=== PATIENT | female | born 1990 | race Two or more races ===

== ENCOUNTER 2022-06-21 09:52 | Emergency (ER) | payer SELFPAY ==
[2022-06-21 10:04] VITALS: BP 115/75; PULSE 105; RESP 18; TEMP 99.6
[2022-06-21] MEDS ORDERED: ONDANSETRON *ODT* 4 MG TABLET SL ONE (10:59)
[2022-06-21] MEDS ORDERED: ACETAMINOPHEN 500 MG TABLET (FP) PO ONE (11:00)
[2022-06-21] MEDS ORDERED: ACETAMINOPHEN 500 MG TABLET (FP) ONE (11:07)
[2022-06-21] MEDS ORDERED: ONDANSETRON *ODT* 4 MG TABLET ONE (11:07)
[2022-06-21 13:13] LABS: EPI CELLS 33 /uL (0-25.1); HYALINE CASTS 6 /uL (0-3.1); URINE APPEARANCE CLEAR; URINE BACTERIA 1063 /uL (0-1359); URINE BILIRUBIN NEGATIVE (NEGATIVE); URINE COLOR DK YELLOW; URINE GLUCOSE (UA) NEGATIVE (NEGATIVE); URINE KETONE TRACE (NEGATIVE); URINE LEUK ESTERASE NEGATIVE (NEGATIVE); URINE NITRITE NEGATIVE (NEGATIVE); URINE PROTEIN 1+ (NEGATIVE); URINE UROBILINOGEN 0.2 mg/dL (0.2-1.0); URINE WBC 26 /uL (0-25.8)
[2022-06-21 13:33] LABS: URINE RBC 19.9 /uL (0-23.9)
== END 2022-06-21 16:48 | disposition home or self-care (01) ==
LOC: JER 09:52
DX: J11.1 Influenza due to unidentified influenza virus with other respiratory manifestations (principal)
CPT/HCPCS: 0241U-QW; 76817-TC; 81003; 84703; 87086; 99284-25; Q0162

== ENCOUNTER 2023-01-13 03:10 | Inpatient (IN) | payer OTHER ==
[2023-01-13] MEDS ORDERED: AMPICILLIN - 2 GM in SODIUM CHLORIDE 100 ML IVPB ONE (05:32)
[2023-01-13] MEDS: ELECTROLYTE-148 SOLN 1,000 ML IV SCH ×2 (05:45→07:40)
[2023-01-13 05:47] VITALS: BMI 35.2
[2023-01-13] MEDS ORDERED: AMPICILLIN SODIUM 2 GM VIAL ONE (06:02)
[2023-01-13] MEDS ORDERED: FENTANYL/BUPIVACAINE/NS/PF - PCEA - 50 ML DISP.SYRIN EP ONE ×2 (07:35→12:56)
[2023-01-13] MEDS ORDERED: BUPIVACAINE HCL/PF 0.25% (2.5MG/ML) 10 ML VIAL ONE (07:37)
[2023-01-13 07:39] LABS: INR 0.95 (0.83-1.09)
[2023-01-13 07:41] LABS: ACTIVATED PTT 26.4 SECONDS (25.2-36.5)
[2023-01-13 07:47] LABS: POTASSIUM 4.2 mmol/L (3.5-5.1)
[2023-01-13 07:48] LABS: CALCIUM 9.2 mg/dL (8.5-10.1)
[2023-01-13 07:52] LABS: CREATININE 0.6 mg/dL (0.55-1.3)
[2023-01-13 08:11] LABS: BASO % 1.1 % (0-2.0); EOS % 0.8 % (0-4.5); HEMATOCRIT 37.4 % (32.4-45.2); HEMOGLOBIN 12.9 GM/dL (10.7-15.3); LYMPH % 17.5 % (8-40); MCH 31.8 pg (25.7-33.7); MCHC 34.6 g/dl (32.0-36.0); MEAN CELL VOLUME 91.8 fl (80-96); MEAN PLT VOLUME 9.7 fl (7.5-11.1); MONO % 6.2 % (3.8-10.2); NEUT % 74.4 % (42.8-82.8); PLATELET COUNT 226 10^3/uL (134-434); RBC 4.08 M/mm3 (3.60-5.2); RDW 13.7 % (11.6-15.6); WHITE BLOOD COUNT 9.7 K/mm3 (4.0-10.0)
[2023-01-13] MEDS ORDERED: AMPICILLIN SODIUM 1 GM VIAL ONE ×2 (09:56→13:57)
[2023-01-13] MEDS ORDERED: OXYTOCIN 30 UNITS in 0.9% NS 30 UNIT/500 ML INFUS.BAG IVPB ONE (09:57)
[2023-01-13] MEDS ORDERED: NALOXONE HCL 0.4 MG/ML VIAL IVPUSH PRN (10:01)
[2023-01-13] MEDS: AMPICILLIN - 1 GM in SODIUM CHLORIDE 100 ML IVPB SCH ×2 (10:07→14:04)
[2023-01-13] MEDS ORDERED: FENTANYL/BUPIVACAINE/NS/PF - PCEA - 50 ML DISP.SYRIN EP SCH (10:15)
[2023-01-13] MEDS ORDERED: OXYTOCIN 30 UNITS in 0.9% NS 30 UNIT/500 ML INFUS.BAG IVPB SCH (10:30)
[2023-01-13 13:14] LABS: HIV INTERPRETATION NEGATIVE (NEGATIVE)
[2023-01-13 14:11] VITALS: RESP 18
[2023-01-13] MEDS ORDERED: OXYTOCIN 20 UNITS in 0.9% NS 20 UNIT/1,000 ML INFUS.BAG IV ONE (14:52)
[2023-01-13] MEDS ORDERED: LIDOCAINE HCL 1% PRESERVATIVE FREE - 30ML VIAL ONE (14:52)
[2023-01-13 16:01] LABS: CORD BASE EXCESS -2.9 mmol/L (0-2); CORD HCO3 23.1 mmHg (20-29); CORD PCO2 44.4 mmHg (30-78); CORD pH 7.334 (7.14-7.44)
[2023-01-13 16:05] LABS: CORD HCO3 21.7 mmHg (20-29); CORD PCO2 48.7 mmHg (30-78); CORD pH 7.267 (7.14-7.44)
[2023-01-13] MEDS ORDERED: IBUPROFEN 600 MG TABLET (FP) PO PRN (17:46)
[2023-01-13] MEDS ORDERED: BENZOCAINE 20% 57 GM BOTTLE TP PRN (17:46)
[2023-01-13] MEDS ORDERED: BENZOCAINE 28 GM HEMORRHOIDAL OINTMENT TP PRN (17:46)
[2023-01-13] MEDS ORDERED: WITCH HAZEL 50% (TUCKS) 40 PAD/JAR PAD TP PRN (17:46)
[2023-01-13] MEDS ORDERED: BISACODYL 10 MG SUPP.RECT RC PRN (17:46)
[2023-01-13] MEDS ORDERED: METHYLERGONOVINE MALEATE 0.2 MG/1 ML AMP IM PRN (17:46)
[2023-01-13] MEDS ORDERED: OXYTOCIN 20 UNITS in 0.9% NS 20 UNIT/1,000 ML INFUS.BAG IV SCH (18:00)
[2023-01-13] MEDS: oxyCODONE HCL 5 MG TABLET PO PRN ×2 (18:38→22:23)
[2023-01-14] MEDS: ACETAMINOPHEN 325 MG TABLET (FP) PO PRN ×3 (00:21→11:40)
[2023-01-14] MEDS: oxyCODONE HCL 5 MG TABLET PO PRN (05:46)
[2023-01-14 08:12] LABS: BASO % 0.6 % (0-2.0); EOS % 0.8 % (0-4.5); HEMATOCRIT 35.4 % (32.4-45.2); HEMOGLOBIN 11.8 GM/dL (10.7-15.3); LYMPH % 12.7 % (8-40); MCH 30.9 pg (25.7-33.7); MCHC 33.4 g/dl (32.0-36.0); MEAN CELL VOLUME 92.6 fl (80-96); MEAN PLT VOLUME 9.7 fl (7.5-11.1); MONO % 5.2 % (3.8-10.2); NEUT % 80.7 % (42.8-82.8); PLATELET COUNT 220 10^3/uL (134-434); RBC 3.82 M/mm3 (3.60-5.2); RDW 13.5 % (11.6-15.6); WHITE BLOOD COUNT 15.8 K/mm3 (4.0-10.0)
[2023-01-14] MEDS ORDERED: SENNOSIDES/DOCUSATE COMBO (SENNA PLUS) TABLET (UD) PO PRN (22:00)
[2023-01-15 09:52] VITALS: BP 115/67; PULSE 90; TEMP 97.2
[2023-01-15] MEDS ORDERED: DIPHTH,PERTUSS(ACELL),TET 0.5 ML DISP.SYRIN IM ONE (10:00)
== END 2023-01-15 11:20 | disposition home or self-care (01) | DRG 560 ==
LOC: JDEL 03:10 → JLDR 05:16 → J3W 16:55
PROVIDERS: ADMIT Obstetrics & Gynecology; ATTEND Obstetrics & Gynecology
PROC: 0HQ9XZZ Repair Perineum Skin, External Approach (ICD-10-PCS; principal; 2023-01-13)
PROC: 10E0XZZ Delivery of Products of Conception, External Approach (ICD-10-PCS; 2023-01-13)
DX: O99.824 Streptococcus B carrier state complicating childbirth (principal); O70.0 First degree perineal laceration during delivery; Z3A.40 40 weeks gestation of pregnancy; Z37.0 Single live birth
CPT/HCPCS: 36415; 36600; 80048; 82803; 85025; 85610; 85730; 86780; 86850; 86900; 86901; 87389; 90715